=== PATIENT | male | born 1965 | race Caucasian/White ===

== ENCOUNTER 2018-04-16 21:05 | Emergency (ER) | payer OTHER ==
[~2018-04-16] VITALS: Ht 177.8 cm; Wt 95.3 kg
--- NOTE | ~2018-04-16 | EKG ---
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
[~2018-04-16 21:05] MED LIST: SEPTRA DS 800 M1 TAB PO
[2018-04-16 22:42] LABS: BASO % 0.4 % (0.0-1.0); EOS % 0.3 % (1.0-4.0); HEMATOCRIT 46.9 % (42.0-52.0); HEMOGLOBIN 15.5 g/dl (14.0-18.0); LYMPH # 1.6 10*3/uL (1.3-4.4); LYMPH % 14.7 % (27.0-41.0); MEAN CELL VOLUME 98.1 fl (80.0-94.0); MEAN CORPUSCULAR HGB 32.4 pg (27.0-31.0); MEAN PLATELET VOLUME 11.2 fl (9.6-12.3); MONO # 0.5 10*3/uL (0.1-1.0); MONO % 4.6 % (3.0-9.0); NEUT # 8.7 10*3/uL (2.3-7.9); NEUT % 79.7 % (47.0-73.0); PLATELET COUNT AUTOMATED 190 10*3/uL (130-400); RED BLOOD COUNT 4.78 10*6/uL (4.50-5.90); RED CELL DISTRI WIDTH 12.7 % (0-14.5); WHITE BLOOD COUNT 10.9 10*3/uL (4.8-10.8)
[2018-04-16 23:06] LABS: ALBUMIN 3.6 gm/dl (3.1-4.5); ALKALINE PHOSPHATASE 129 U/L (45-117); BUN 9 mg/dl (7-24); CHLORIDE 107 mmol/L (98-107); CREATININE 0.95 mg/dL (0.70-1.30); POTASSIUM 3.9 mmol/L (3.5-5.1); SGOT/AST 315 IU/L (3-35); SGPT/ALT 213 U/L (12-78); SODIUM 141 mmol/L (136-145); TOTAL PROTEIN 7.9 gm/dL (6.4-8.2)
[2018-04-16 23:29] LABS: LIPASE 323 U/L (73-393)
== END 2018-04-17 05:32 | disposition short-term general hospital (02) ==
LOC: ED 21:05
PROVIDERS: Emergency Medicine
DX: G40.901 Epilepsy, unspecified, not intractable, with status epilepticus (principal); K72.01 Acute and subacute hepatic failure with coma; K72.90 Hepatic failure, unspecified without coma; Z91.040 Latex allergy status

== ENCOUNTER 2018-11-13 14:15 | Emergency (ER) | payer OTHER ==
[~2018-11-13] VITALS: Ht 182.8 cm; Wt 74.8 kg
--- NOTE | ~2018-11-13 | EKG ---
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 Still: : 1965 Requested By: GLORIA HUSAIN Order Number: [id number] Reading MD: Agnes Alvarado MD Measurements Intervals [place] Rate: 135 P: 79 OR: 138 QRS: 82 QRSD: 92 T: 44 QT: 292 QTc: 438 Interpretive Statements Sinus tachycardia Consider right atrial enlargement Anteroseptal infarct, old Minimal ST depression, diffuse leads Compared to ECG 08/07/2018 21:21:15 ST (T wave) deviation now present Sinus rhythm no longer present Myocardial infarct finding still present Electronically Signed On 11-15-2018 10:02:15 PDT by Agnes Alvarado MD CM:EKGRPT:ELECTROCARDIOGRAM REPORT 1419 1002 GLORIA HUSAIN EPIPHANY DRAFT REPORT GLORIA HUSAIN
== END 2018-11-13 15:11 | disposition left against medical advice (07) ==
LOC: ED 14:15
DX: T40.1X1A Poisoning by heroin, accidental (unintentional), initial encounter (principal); R41.82 Altered mental status, unspecified; Y92.89 Other specified places as the place of occurrence of the external cause

== ENCOUNTER 2019-07-11 18:03 | Emergency (ER) | payer SELFPAY ==
[~2019-07-11] VITALS: Ht 177.8 cm; Wt 70.3 kg
[2019-07-11] MEDS ORDERED: CEPHALEXIN500 M1 PO (18:37)
== END 2019-07-11 18:42 | disposition home or self-care (01) ==
LOC: ED 18:03
DX: S51.852A Open bite of left forearm, initial encounter (principal); W50.3XXA Accidental bite by another person, initial encounter; Y93.89 Activity, other specified; Y92.89 Other specified places as the place of occurrence of the external cause; Y99.8 Other external cause status

== ENCOUNTER 2020-01-23 00:52 | Emergency (ER) | payer SELFPAY ==
[~2020-01-23] VITALS: Ht 177.8 cm; Wt 70.3 kg
[~2020-01-23 00:52] MED LIST changes: +CEPHALEXIN500 M1 PO
[2020-01-23] MEDS ORDERED: CEPHALEXIN500 M1 PO (04:08)
== END 2020-01-23 04:07 | disposition left against medical advice (07) ==
LOC: ED 00:52
DX: S01.81XA Laceration without foreign body of other part of head, initial encounter (principal); F17.200 Nicotine dependence, unspecified, uncomplicated; Z79.2 Long term (current) use of antibiotics; Y04.8XXA Assault by other bodily force, initial encounter; Y93.89 Activity, other specified; Y92.89 Other specified places as the place of occurrence of the external cause; Y99.8 Other external cause status

== ENCOUNTER → 2022-07-14 | Outpatient (CLI) | payer MEDICAID | END | disposition home or self-care (01) | LOC: RAD 07:59 | PROVIDERS: ATTEND Internal Medicine | DX: M19.012 Primary osteoarthritis, left shoulder (principal); M85.812 Other specified disorders of bone density and structure, left shoulder ==